=== PATIENT | male | born 1990 | race Caucasian/White ===

== ENCOUNTER 2016-03-08 06:59 | Emergency (ER) | payer BC ==
[~2016-03-08] VITALS: Ht 185.4 cm; Wt 108.4 kg
[~2016-03-08 06:59] MED LIST: ZITHROMAX Z-PA250 MG PO
[2016-03-08] MEDS ORDERED: EPINEPHRIN0.15 MG/0. IM (10:02)
[2016-03-08] MEDS ORDERED: PREDNISONE20 MG PO (10:02)
[2016-03-08] MEDS ORDERED: PEPCID20 MG PO (10:02)
[2016-03-08 10:11] VITALS: BP 129/80
== END 2016-03-08 10:28 | disposition home or self-care (01) ==
LOC: EME 06:59
DX: T78.1XXA Other adverse food reactions, not elsewhere classified, initial encounter (principal); J39.2 Other diseases of pharynx; Z91.010 Allergy to peanuts; F17.200 Nicotine dependence, unspecified, uncomplicated
CPT/HCPCS: 99281; 99284; J1200; J2930; J7120; S0028

== ENCOUNTER 2016-05-24 08:39 | Emergency (ER) | payer BC ==
[~2016-05-24] VITALS: Ht 185.4 cm; Wt 107.9 kg
[~2016-05-24 08:39] MED LIST changes: +EPINEPHRIN0.15 MG/0. IM; +PEPCID20 MG PO; +PREDNISONE20 MG PO
[2016-05-24 09:43] LABS: HEMATOCRIT 47.2 % (38.0-50.0); MCH 27.1 PG (29.0-34.0); MCHC 31.8 G/DL (30.0-36.0); MCV 85.4 FL (86-99); MEAN PLAT.VOLUME 10.1 uM^3 (9.0-12.4); PLATELET COUNT 258 K/uL (156-360); RBC DIS.WIDTH-CV 13.9 % (11.8-14.6); RBC DIS.WIDTH-SD 43.2 % (39-53); RED BLOOD COUNT 5.53 M/uL (4.00-5.50); WHITE BLOOD COUNT 5.5 K/uL (4.1-10.2)
[2016-05-24 10:01] LABS: CHLORIDE 110 mEq/L (99-109)
[2016-05-24 10:02] LABS: POTASSIUM 4.4 mEq/L (3.7-5.4); SODIUM 142 mEq/L (136-147)
[2016-05-24 10:03] LABS: GLUCOSE 93 mg/dL (70-99)
[2016-05-24 10:05] LABS: ANION GAP 7 MEQ/L (2-14)
[2016-05-24 10:07] LABS: GFR ESTIMATE (CALCULATED) > 59 mL/min/
[2016-05-24 10:08] LABS: UREA NITROGEN (BUN) 13 mg/dL (9-23)
[2016-05-24 10:47] LABS: INFLUENZA A VIRAL ANTIGEN NEGATIVE; INFLUENZA B VIRAL ANTIGEN NEGATIVE
[2016-05-24] MEDS ORDERED: ZOFRAN ODT4 MG PO (10:52)
[2016-05-24] MEDS ORDERED: VENTOLIN HFA18 GM IH (10:52)
[2016-05-24 11:06] VITALS: BP 149/88
== END 2016-05-24 11:06 | disposition home or self-care (01) ==
LOC: EME 08:39
PROVIDERS: Nurse Practitioner Family
DX: R05 Cough (principal); R06.02 Shortness of breath; R11.2 Nausea with vomiting, unspecified; Z87.01 Personal history of pneumonia (recurrent); F17.200 Nicotine dependence, unspecified, uncomplicated; J45.909 Unspecified asthma, uncomplicated
CPT/HCPCS: 71020; 80048; 83605; 85027; 87502; 94640; 99281; 99284

== ENCOUNTER 2016-06-04 06:41 | Emergency (ER) | payer BC ==
[~2016-06-04] VITALS: Ht 185.4 cm; Wt 108.5 kg
[~2016-06-04 06:41] MED LIST changes: +VENTOLIN HFA18 GM IH; +ZOFRAN ODT4 MG PO
[2016-06-04 07:58] LABS: HEMATOCRIT 48.3 % (38.0-50.0); MCH 27.6 PG (29.0-34.0); MCHC 31.9 G/DL (30.0-36.0); MCV 86.7 FL (86-99); MEAN PLAT.VOLUME 9.9 uM^3 (9.0-12.4); PLATELET COUNT 251 K/uL (156-360); RBC DIS.WIDTH-CV 13.8 % (11.8-14.6); RBC DIS.WIDTH-SD 43.7 % (39-53); RED BLOOD COUNT 5.57 M/uL (4.00-5.50)
[2016-06-04 08:08] LABS: CHLORIDE 110 mEq/L (99-109); POTASSIUM 4.3 mEq/L (3.7-5.4); SODIUM 143 mEq/L (136-147)
[2016-06-04 08:09] LABS: GLUCOSE 79 mg/dL (70-99)
[2016-06-04 08:11] LABS: ANION GAP 10 MEQ/L (2-14)
[2016-06-04 08:13] LABS: GFR ESTIMATE (CALCULATED) > 59 mL/min/
[2016-06-04 08:14] LABS: UREA NITROGEN (BUN) 16 mg/dL (9-23)
[2016-06-04 08:24] LABS: TROP-I INTERPRETATION NEGATIVE; TROPONIN-I < 0.01 ng/mL (0.0-0.30)
[2016-06-04] MEDS ORDERED: VENTOLIN HFA18 GM IH (09:14)
[2016-06-04 09:19] VITALS: BP 109/65
== END 2016-06-04 09:39 | disposition home or self-care (01) ==
LOC: EME 06:41
PROVIDERS: Physician Assistant Medical
DX: R07.89 Other chest pain (principal); J45.909 Unspecified asthma, uncomplicated; F17.200 Nicotine dependence, unspecified, uncomplicated
CPT/HCPCS: 71020; 80048; 84484; 85027; 93005; 94640; 99281; 99284

== ENCOUNTER 2016-11-06 03:45 | Emergency (ER) | payer OTHER ==
[~2016-11-06] VITALS: Ht 185.4 cm; Wt 114.6 kg
[2016-11-06 03:48] VITALS: BP 140/86
[2016-11-06] MEDS ORDERED: AMOXICILLIN500 MG PO (04:43)
== END 2016-11-06 04:59 | disposition home or self-care (01) ==
LOC: EME 03:45 → EXP 03:45
DX: J06.9 Acute upper respiratory infection, unspecified (principal); F17.200 Nicotine dependence, unspecified, uncomplicated
CPT/HCPCS: 71020; 99281; 99283

== ENCOUNTER 2017-01-19 15:11 | Emergency (ER) | payer OTHER ==
[~2017-01-19] VITALS: Ht 182.9 cm; Wt 117.8 kg
[~2017-01-19 15:11] MED LIST changes: +AMOXICILLIN500 MG PO; +AZITHROMYCIN250 MG PO; +MOTRIN600 MG PO; +TESSALON PERLE100 MG PO; +ZOLOFT100 MG PO
[2017-01-19 15:45] LABS: HEMATOCRIT 49.8 % (38.0-50.0); MCH 28.1 PG (29.0-34.0); MCHC 33.5 G/DL (30.0-36.0); MCV 83.8 FL (86-99); MEAN PLAT.VOLUME 10.8 uM^3 (9.0-12.4); PLATELET COUNT 261 K/uL (156-360); RBC DIS.WIDTH-CV 13.3 % (11.8-14.6); RED BLOOD COUNT 5.94 M/uL (4.00-5.50); WHITE BLOOD COUNT 7.3 K/uL (4.1-10.2)
[2017-01-19 15:55] LABS: CHLORIDE 105 mEq/L (99-109); SODIUM 140 mEq/L (136-147)
[2017-01-19 15:57] LABS: GLUCOSE 88 mg/dL (70-99)
[2017-01-19 15:58] LABS: ANION GAP 9 MEQ/L (2-14)
[2017-01-19 16:01] LABS: GFR ESTIMATE (CALCULATED) > 59 mL/min/
[2017-01-19 16:02] LABS: UREA NITROGEN (BUN) 16 mg/dL (9-23)
[2017-01-19 17:50] LABS: ADD MIUA? NO; BILIRUBIN NEGATIVE; BLOOD NEGATIVE; COLOR YELLOW ((YELLOW)); GLUCOSE (STRIP) NEGATIVE; KETONES NEGATIVE; LEUKOCYTES NEGATIVE; NITRITE NEGATIVE; PROTEIN (STRIP) NEGATIVE; SPECIFIC GRAVITY 1.019 (1.000-1.030); UCUL ADDED? NO; UROBILINOGEN 0.2 MG/DL (0.2-1.0)
[2017-01-19 19:23] VITALS: BP 154/80
== END 2017-01-19 19:33 | disposition home or self-care (01) ==
LOC: EME 15:11
DX: G43.909 Migraine, unspecified, not intractable, without status migrainosus (principal); F17.200 Nicotine dependence, unspecified, uncomplicated
CPT/HCPCS: 70470; 80048; 81003; 85027; 99281; 99285; J1200; J2765